=== PATIENT | female | born 1995 | race Two or more races ===

== ENCOUNTER 2021-04-30 15:51 | Emergency (ER) | payer BC, OTHER ==
[~2021-04-30] VITALS: Ht 152.4 cm; Wt 79.8 kg
[2021-04-30 18:56] VITALS: BP 108/76
[2021-04-30] MEDS ORDERED: ACETAMINOPHEN 325 MG TAB PO ONE (20:00)
[2021-04-30] MEDS ORDERED: cefTRIAXone SOD 1,000 MG VL IM ONE (20:00)
== END 2021-04-30 20:39 | disposition home or self-care (01) ==
LOC: ER 15:51
DX: O26.892 Other specified pregnancy related conditions, second trimester (principal); L03.317 Cellulitis of buttock; Z3A.19 19 weeks gestation of pregnancy
CPT/HCPCS: 96372; 99283; J0696